=== PATIENT | female | born 1960 | race Hispanic/Latino ===

== ENCOUNTER 2020-09-05 15:19 | Emergency (ER) | payer OTHER ==
--- OUTSIDE RECORDS SUMMARY | 2020-09-05 15:21 | XMS REPORT | Continuity of Care Document ---
:1960 Author Organization [facility] t Address [address] [place] [address] Dr. Saravia [address] [place] [id number] Care Team Providers Name Role Phone Unavailable Unavailable Unavailable Problems This patient has no known problems. Allergies, Adverse Reactions, Alerts This patient has no known allergies or adverse reactions. Medications This patient has no known medications. Procedures This patient has no known procedures. Results This patient has no known results.
--- NOTE | 2020-09-05 17:04 | RAD REPORT ---
EXAM DESCRIPTION: RAD - Humerus Left - 09/05/2020 4:40 pm CLINICAL HISTORY: Humeral fracture FINDINGS: Moderately displaced humeral neck fracture without significant change in appearance from M arch 2020. The fracture extends into the greater trochanter. No dislocation
--- NOTE | 2020-09-05 18:13 | ER ---
Nurse's Notes [facility] Name: Stella Kraft Age: 60 yrs Sex: Female : 1960 Arrival Date: 09/05/2020 Time: 15: Bed 30 Private MD: Derrek Malone E Diagnosis: Acute, closed, left humeral neck fracture Presentation: 09/05 15:43 Chief complaint: Patient states: Trip and fall 2 weeks ago. Had L shoulder x-ray done, ll1 her PCP sent her in for eval of fx. X-ray shows humeral head FX. Coronavirus screen: Client denies travel out of the [place] in the last 14 days. At this time, the client does not indicate any symptoms associated with coronavirus-19. Ebola Screen: Patient denies travel to an Ebola-affected area in the 21 days before illness onset. Initial Sepsis Screen: Does the patient meet any 2 criteria? No. Patient's initial sepsis screen is negative. Does the patient have a suspected source of infection? Yes: Bone or joint infection. Risk Assessment: Do you want to hurt yourself or someone else? Patient reports no desire to harm self or others. Onset of symptoms was August 22, 2020. 15:43 Method Of Arrival: Ambulatory ll1 15:43 Acuity: YOAV 4 ll1 Historical: - Allergies: 15:46 No Known Allergies; ll1 - PMHx: 15:46 Hypertension; Hypothyroidism; ll1 - PSHx: 15:46 None; ll1 - Immunization history:: Flu vaccine is up to date. - Social history:: Smoking status: Patient denies any tobacco usage or history of. - Family history:: not pertinent. - Hospitalizations: : No recent hospitalization is reported. Screenin:02 Abuse screen: Denies threats or abuse. Denies injuries from another. Nutritional ss screening: No deficits noted. Tuberculosis screening: Never had TB. Fall Risk None identified. Assessment: 18:02 General: Denies fever, feeling ill, fatigue, chills. Pain: Complains of pain in L ss shoulder Pain currently is 8 out of 10 on a pain scale. Quality of pain is described as aching, tender, Pain began 2 weeks ago. Pt has known fracture Is continuous. Neuro: Level of Consciousness is awake, alert, obeys commands, Oriented to person, place, time, situation, Speech is normal. Cardiovascular: Capillary refill < 3 seconds is brisk in bilateral fingers. Respiratory: Airway is patent Respiratory effort is even, unlabored, Respiratory pattern is regular, symmetrical. GI: Patient currently denies abdominal pain, diarrhea, nausea, vomiting. : No signs and/or symptoms were reported regarding the genitourinary system. EENT: Nares are clear Oral mucosa is moist. Derm: Skin is intact, is healthy with good turgor, Skin is dry, Skin is pink, warm \T\ dry. normal. Musculoskeletal: Circulation, motion, and sensation intact. Range of motion: limited in left shoulder Swelling absent. Vital Signs: 15:43 BP 174 / 75; Pulse 82; Resp 17; Temp 98.3; Pulse Ox 100% ; Weight 55.34 kg; Height 5 ll1 ft. 0 in. (152.40 cm); Pain 8/10; 15:43 Body Mass Index 23.83 (55.34 kg, 152.40 cm) ll1 ED Course: 15:22 Patient arrived in ED. mr 15:23 Derrek Malone MD is Private Physician. mr 15:45 Triage completed. ll1 15:46 Arm band placed on. ll1 16:37 XRAY Humerus LEFT In Process Unspecified. EDMS 17:51 Jeremías Rajan MD is Attending Physician. rn 18:02 Juana Pozo, NASIM is Primary Nurse. ss 18:02 Patient has correct armband on for positive identification. Bed in low position. Call ss light in reach. 18:02 No provider procedures requiring assistance completed. Patient did not have IV access ss during this emergency room visit. 18:11 Henrik Lebron MD is Referral Physician. rn Administered Medications: No medications were administered Outcome: 18:12 Discharge ordered by . rn 18:35 Discharged to home ambulatory. ss 18:35 Condition: good 18:35 Discharge instructions given to patient, Instructed on discharge instructions, follow up and referral plans. Demonstrated understanding of instructions, follow-up care. 18:35 Patient left the ED. ss Signatures: Dispatcher [employer] EDWY Shanice Gonzalez mr Jeremías Rajan MD MD rn Smirch, Shelby, RN RN Shyanne Lucas RN RN ll1 Corrections: (The following items were deleted from the chart) 15:48 15:43 Chief complaint: Patient states: Trip and fall 2 weeks ago. Had L shoulder x-ray ll1 done, her PCP sent her in for eval of fx. ll1
--- NOTE | 2020-09-05 18:13 | EDPHYS ---
Physician Documentation [facility] Name: Stella Kraft Age: 60 yrs Sex: Female : 1960 Arrival Date: 09/05/2020 Time: 15:22 Bed 30 Private MD: Derrek Malone E ED Physician Jeremías Rajan HPI: 09/05 18:02 This 60 yrs old Female presents to ER via Ambulatory with complaints of Arm rn Injury. 18:02 The patient or guardian complains of decreased range of motion, injury, pain. The rn complaints affect the anterior aspect of left shoulder. Onset: The symptoms/episode began/occurred 2 week(s) ago. Modifying factors: The symptoms are alleviated by remaining still, the symptoms are aggravated by movement, lifting weight. Severity of symptoms: At their worst the symptoms were moderate, in the emergency department the symptoms have improved. The patient has not experienced similar symptoms in the past. The patient has been recently seen by a physician:. Reports fall from standing 2 weeks ago, outpt xray showed fracture of proximal humerus, followed up with ortho but didn't take her insurance, spoke with her PCP who asked her to buy a sling and come in to ER for reeval. No new injury. No weakness or numbness of LUE. Does have limited ROM with lateral elevation of arm. . Historical: - Allergies: 15:46 No Known Allergies; ll1 - PMHx: 15:46 Hypertension; Hypothyroidism; ll1 - PSHx: 15:46 None; ll1 - Immunization history:: Flu vaccine is up to date. - Social history:: Smoking status: Patient denies any tobacco usage or history of. - Family history:: not pertinent. - Hospitalizations: : No recent hospitalization is reported. ROS: 18:02 Constitutional: Negative for fever, chills, and weight loss, MS/Extremity: + left arm rn pain and injury for 2 weeks Skin: No laceration Neuro: Negative for weakness, numbness, tingling Exam: 18:02 Constitutional: This is a well developed, well nourished patient who is awake, alert, rn and in no acute distress. MS/ Extremity: Pulses equal, no cyanosis. Neurovascular intact. + limited lateral elevation of arm. Vital Signs: 15:43 BP 174 / 75; Pulse 82; Resp 17; Temp 98.3; Pulse Ox 100% ; Weight 55.34 kg; Height 5 ll1 ft. 0 in. (152.40 cm); Pain 8/10; 15:43 Body Mass Index 23.83 (55.34 kg, 152.40 cm) ll1 MDM: 17:51 Patient medically screened. rn 18:02 Differential diagnosis: closed fracture, contusion. Data reviewed: vital signs, nurses rn notes, radiologic studies, plain films, and as a result, I will discharge patient. Counseling: I had a detailed discussion with the patient and/or guardian regarding: the historical points, exam findings, and any diagnostic results supporting the discharge/admit diagnosis, radiology results, the need for outpatient follow up, to return to the emergency department if symptoms worsen or persist or if there are any questions or concerns that arise at home. Special discussion: I discussed with the patient/guardian in detail that at this point there is no indication for admission to the hospital. It is understood, however, that if the symptoms persist or worsen the patient needs to return immediately for re-evaluation. Based on the history and exam findings, there is no indication for further emergent testing or inpatient evaluation. I discussed with the patient/guardian the need to see the orthopedic surgeon for further evaluation of the symptoms. ED course: Pt has since contacted her insurance her directed her to Dr. Lebron, she is going to schedule appt with Dr. Bernardino LESTER. Already in [facility].. 09/05 16:06 Order name: MARIBELL Humerus LEFT; Complete Time: 17:52 rn Administered Medications: No medications were administered Disposition: 09/05/20 18:12 Discharged to Home. Impression: Acute, closed, left humeral neck fracture. - Condition is Stable. - Discharge Instructions: Humerus Fracture Treated With Immobilization. - Medication Reconciliation Form, Thank You Letter, Antibiotic Education, Prescription Opioid Use form. - Follow up: Henrik Lebron MD; When: As needed; Reason: Recheck today's complaints, Re-evaluation by your physician. - Problem is an ongoing problem. - Symptoms have improved. Signatures: Dispatcher [employer] EDMS Jeremías Rajan MD MD rn Smirch, Shelby, RN RN ss Lewis, Lynsay, RN RN ll1 Corrections: (The following items were deleted from the chart) 18:35 18:12 09/05/2020 18:12 Discharged to Home. Impression: Acute, closed, left humeral neck ss fracture. Condition is Stable. Forms are Medication Reconciliation Form, Thank You Letter, Antibiotic Education, Prescription Opioid Use. Follow up: Dr. Henrik Lebron; When: As needed; Reason: Recheck today's complaints, Re-evaluation by your physician. Problem is an ongoing problem. Symptoms have improved. rn
[2020-09-05 19:06] VITALS: BP 174/75; TEMP 98.3; O2SAT 100
== END 2020-09-05 18:35 | disposition home or self-care (01) ==
LOC: ER 15:19
DX: S42.292A Other displaced fracture of upper end of left humerus, initial encounter for closed fracture (principal); W01.10XA Fall on same level from slipping, tripping and stumbling with subsequent striking against unspecified object, initial encounter; Y93.9 Activity, unspecified; Y92.9 Unspecified place or not applicable
CPT/HCPCS: 99283

== ENCOUNTER 2025-04-06 20:00 | Emergency (ER) | payer OTHER ==
[2025-04-06] MEDS ORDERED: HYDROCODONE/APAP 5/325 MG TAB ONE (20:22)
[2025-04-06] MEDS ORDERED: DIAZEPAM 5 MG TABLET ONE (22:10)
--- NOTE | 2025-04-06 22:18 | RAD REPORT ---
EXAMINATION: XR Lumbar Spine 3 Views CLINICAL INDICATION: Female, 65 years old. PAIN Bed Name: 6 TECHNIQUE: AP, lateral, focused lateral lumbosacral views of the lumbar spine were obtained. COMPARISON: No prior exam. FINDINGS: For purposes of this dictation, it is assumed that there are 5 lumbar type vertebral bodies. ALIGNMENT: Grade 1 anterolisthesis of L5 over S1 measuring 8-9 mm. BONES: Superior endplate compression deformity at L1, with 7 mm retropulsion of the posterior fragmen t. Other vertebral bodies are normal in height. No aggressive osseous lesions. Mild to moderate endplate degenerative changes most notably at L4-5. DISCS: Disc heights are maintained. IMPRESSION: Superior endplate compression deformity at L1 with 7 mm retropulsion of the posterior fragment. This is of indeterminate age. Other multilevel degenerative changes, up to moderate, with grade 1 anterolisthesis of L5 over S1.
--- NOTE | 2025-04-06 22:19 | RAD REPORT ---
EXAMINATION: XR Sacrum And Coccyx HISTORY: PAIN TECHNIQUE: 2 radiographic views of the sacrum and coccyx. FINDINGS: Lumbar spine and lumbosacral junction evaluated separately and lumbar spine radiographs of the same d ay. Mild to moderate SI joint degenerative changes, joints appear patent. No evidence of an acute fracture or suspicious osseous lesion otherwise.
--- NOTE | 2025-04-06 22:27 | EDPHYS ---
Physician Documentation [facility] Name: Stella Kraft Age: 65 yrs Sex: Female : 1960 Arrival Date: 04/06/2025 Time: 20:00 Bed 6 Private MD: ED Physician Venutra Bunn HPI: 04/06 20:37 This 65 yrs old Female presents to ER via Ambulatory with complaints of Fall kb Injury - LOWER BACK PAIN. 20:37 Pt is a 65 year old female who presents for low back pain after falling backwards 5 kb days ago at [facility]. Denies hitting head, loc. 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 Denies numbness, tingling, urinary symptoms. Historical: - Allergies: 20:19 No Known Allergies; dd2 - PMHx: 20:19 Hypertension; Hypothyroidism; Osteoporosis; dd2 - PSHx: 20:19 None; dd2 - Immunization history:: Adult Immunizations unknown. - Infectious Disease History:: Denies. - Social history:: Smoking status: Patient denies any tobacco usage or history of. ROS: 20:36 Constitutional: As per HPI kb Exam: 20:36 Constitutional: This is a well developed, well nourished patient who is awake, alert, kb and in no acute distress. Head/Face: Normocephalic, atraumatic. ENT: Moist Mucous membranes Respiratory: Respirations even and unlabored. No increased work of breathing. Talking in full sentences Skin: Warm, dry with normal turgor. Normal color. MS/ Extremity: Pulses equal, no cyanosis. Neurovascular intact. Full, normal range of motion. Neuro: Awake and alert, GCS 15, oriented to person, place, time, and situation. 20:36 Back: pain, that is moderate, of the lumbar area and sacrum, ROM is normal, vertebral tenderness, is appreciated at sacrum, Vital Signs: 20:17 BP 145 / 65; Pulse 84; Resp 16; Temp 98.2; Pulse Ox 98% on R/A; Pain 10/10; dd2 21:30 BP 145 / 76; Pulse 67; Resp 16; Pulse Ox 99% on R/A; af3 22:14 BP 153 / 80; Pulse 74; Resp 18; Pulse Ox 95% on R/A; af3 22:43 BP 145 / 82; Pulse 73; Resp 18; Pulse Ox 95% on R/A; af3 20:17 Pain Scale: Adult dd2 MDM: 20:12 Medical Screening Exam initiated kb 20:37 Differential diagnosis: contusion, fracture, herniated disc. Data reviewed: vital kb signs, nurses notes. 22:28 Counseling: I had a detailed discussion with the patient and/or guardian regarding the kb historical points, exam findings, and any diagnostic results supporting the discharge/admit diagnosis, radiology results, the need for outpatient follow up, a family practitioner, to return to the emergency department if symptoms worsen or persist or if there are any questions or concerns that arise at home. 22:28 Historians other than the Patient: Family Member: family. kb 04/06 20:18 Order name: Lumbar Spine (3 Views) XRAY; Complete Time: 22:18 kb 04/06 20:18 Order name: Sacrum And Coccyx XRAY; Complete Time: 22:21 kb Administered Medications: 20:26 Drug: HYDROcodone-acetaminophen PO 5 mg-325 mg 1 tabs PO once Route: PO; af3 21:30 Follow up: Response: No adverse reaction; RASS: Alert and Calm (0) af3 21:57 Follow up: Response: No adverse reaction af3 22:12 Drug: Diazepam PO 5 mg PO once Route: PO; af3 22:43 Follow up: Response: No adverse reaction; RASS: Alert and Calm (0) af3 Disposition: 23:59 Co-signature as Attending Physician, Ventura Bunn MD I agree with the assessment sp4 and plan of care. I reviewed the patient's care provided by Advanced Practice Provider \T\ agree w/ the diagnosis \T\ care plan. I personally saw the pt \T\ performed a substantive portion of the visit, incldng all aspects of the (History/Exam/Medical Decision Making). Disposition Summary: 04/06/25 22:26 Discharge Ordered Notes: Location: Home Condition: Stable kb Diagnosis - Low back pain kb - Compression fracture L1 kb Followup: kb - With: Emergency Department - When: As needed - Reason: Worsening of condition Followup: kb - With: Private Physician - When: 2 - 3 days - Reason: Recheck today's complaints, Continuance of care, Re-evaluation by your physician Discharge Instructions: - Discharge Summary Sheet kb - Acute Back Pain, Adult kb - Spinal Compression Fracture kb Forms: - Work release form kb - Medication Reconciliation Form kb - Antibiotic Education kb - Prescription Opioid Use kb - Patient Portal Instructions kb - Leadership Thank You Letter kb Prescriptions: - Diclofenac Sodium 75 mg Oral tablet, delayed release (enteric coated) - take 1 tablet ORAL route 2 times per day As needed; 30 tablet; Refills: 0, kb Product Selection Permitted - orphenadrine citrate 100 mg Oral Tablet Sustained Release - take 1 tablet ORAL route 2 times per day As needed; 20 tablet; Refills: 0, kb Product Selection Permitted Signatures: Dispatcher [employer] EDMS Tiffanie Chacon, DAVID-Aurora Clay RN RN ha1 Ventura Bunn MD MD sp4 Alicja Bass RN RN af3 KATHRYN CRAIG RN RN dd2 Corrections: (The following items were deleted from the chart) 20:18 20:18 Lumbar Spine 3 Views+RAD.RAD.BRZ ordered. EDMS EDMS 20:19 20:19 Sacrum And Coccyx+RAD.RAD.BRZ ordered. EDMS EDMS
--- NOTE | 2025-04-06 22:27 | ER ---
Nurse's Notes [facility] Name: Stella Kraft Age: 65 yrs Sex: Female : 1960 Arrival Date: 04/06/2025 Time: 20:00 Bed 6 Private MD: Diagnosis: Low back pain;Compression fracture L1 Presentation: 04/06 20:17 Chief complaint: Patient states: [place] WALKING [place] ON [place] AND FELL dd2 BACKWARDS ON THE GRASS. REPORTS INJURING LOWER BACK AND SACRUM. Coronavirus screen: At this time, the client does not indicate any symptoms associated with coronavirus-19. Ebola Screen: No symptoms or risks identified at this time. Initial Sepsis Screen: Does the patient meet any 2 criteria? No. Patient's initial sepsis screen is negative. Does the patient have a suspected source of infection? No. Patient's initial sepsis screen is negative. Risk Assessment: Do you want to hurt yourself or someone else? Patient reports no desire to harm self or others. Onset of symptoms was April 02, 2025. 20:17 Method Of Arrival: Ambulatory dd2 20:17 Acuity: YOAV 3 dd2 Triage Assessment: 20:19 General: Appears in no apparent distress. uncomfortable, Behavior is calm, cooperative, dd2 appropriate for age. Pain: Complains of pain in low back area and sacrum. Musculoskeletal: Circulation, motion, and sensation intact. Range of motion: intact in all extremities, Reports pain in low back area and sacrum. Historical: - Allergies: 20:19 No Known Allergies; dd2 - PMHx: 20:19 Hypertension; Hypothyroidism; Osteoporosis; dd2 - PSHx: 20:19 None; dd2 - Immunization history:: Adult Immunizations unknown. - Infectious Disease History:: Denies. - Social history:: Smoking status: Patient denies any tobacco usage or history of. Screenin:25 [facility] ED Fall Risk Assessment (Adult) History of falling in the last 3 months, af3 including since admission No falls in past 3 months (0 pts) Confusion or Disorientation No (0 pts) Intoxicated or Sedated No (0 pts) Impaired Gait No (0 pts) Mobility Assist Device Used No (0 pt) Altered Elimination No (0 pt) Score/Fall Risk Level 0 - 2 = Low Risk Oriented to surroundings, Maintained a safe environment, Educated pt \T\ family on fall prevention, incl call for assistance when getting out of bed. 20:25 Abuse screen: Denies threats or abuse. Denies injuries from another. Nutritional af3 screening: No deficits noted. Tuberculosis screening: No symptoms or risk factors identified. Assessment: 20:25 General: Appears in no apparent distress. uncomfortable, well groomed, well developed, af3 Behavior is calm, cooperative, appropriate for age. Pain: Complains of pain in sacrum, left low back and right low back Pain currently is 7 out of 10 on a pain scale. Neuro: Level of Consciousness is awake, alert, obeys commands, Oriented to person, place, time, situation, Appropriate for age. Cardiovascular: Patient's skin is warm and dry. Respiratory: Airway is patent Respiratory effort is even, unlabored, Respiratory pattern is regular, symmetrical. Derm: Skin is intact, Skin is pink, warm \T\ dry. normal. Musculoskeletal: unable to lay flat on back, only comfortable laying on left side. 21:30 Reassessment: Patient appears in no apparent distress at this time. Patient and/or af3 family updated on plan of care and expected duration. Pain level reassessed. Patient is alert, oriented x 3, equal unlabored respirations, skin warm/dry/pink. 22:00 Reassessment: Patient appears in no apparent distress at this time. Patient and/or af3 family updated on plan of care and expected duration. Pain level reassessed. Pt requesting pain medication, stating the back pain has come back at 10/10, provider notified, orders received . 22:43 Reassessment: Patient appears in no apparent distress at this time. Patient and/or af3 family updated on plan of care and expected duration. Pain level reassessed. Patient is alert, oriented x 3, equal unlabored respirations, skin warm/dry/pink. Patient states symptoms have improved. Vital Signs: 20:17 BP 145 / 65; Pulse 84; Resp 16; Temp 98.2; Pulse Ox 98% on R/A; Pain 10/10; dd2 21:30 BP 145 / 76; Pulse 67; Resp 16; Pulse Ox 99% on R/A; af3 22:14 BP 153 / 80; Pulse 74; Resp 18; Pulse Ox 95% on R/A; af3 22:43 BP 145 / 82; Pulse 73; Resp 18; Pulse Ox 95% on R/A; af3 20:17 Pain Scale: Adult dd2 ED Course: 20:06 Patient arrived in ED. sj2 20:08 KATHRYN CRAIG RN is Primary Nurse. dd2 20:12 Tiffanie Chacon FNP-C is PHCP. kb 20:12 Ventura Bunn MD is Attending Physician. kb 20:19 Triage completed. dd2 20:19 Arm band placed on right wrist. dd2 20:25 Patient has correct armband on for positive identification. Placed in gown. Bed in low af3 position. Provided Education on: plan of care . 20:25 No provider procedures requiring assistance completed. af3 21:03 Lumbar Spine (3 Views) XRAY In Process Unspecified. EDMS 21:03 Sacrum And Coccyx XRAY In Process Unspecified. EDMS 22:44 Patient did not have IV access during this emergency room visit. af3 Administered Medications: 20:26 Drug: HYDROcodone-acetaminophen PO 5 mg-325 mg 1 tabs PO once Route: PO; af3 21:30 Follow up: Response: No adverse reaction; RASS: Alert and Calm (0) af3 21:57 Follow up: Response: No adverse reaction af3 22:12 Drug: Diazepam PO 5 mg PO once Route: PO; af3 22:43 Follow up: Response: No adverse reaction; RASS: Alert and Calm (0) af3 Medication: 20:50 VIS not applicable for this client. af3 Outcome: 22:26 Discharge ordered by MD. kb 22:44 Discharged to home via wheelchair, with family, af3 22:44 Condition: stable 22:44 Discharge instructions given to patient, family, Instructed on discharge instructions, follow up and referral plans. medication usage, Demonstrated understanding of instructions, follow-up care, medications, Prescriptions given X 2, 22:44 Patient left the ED. af3 Signatures: Dispatcher [employer] EDMS Tiffanie Chacon FNP-C FNP-Alicja Mary RN RN af3 KATHRYN CRAIG RN RN dd2 Felix Celis sj2 Corrections: (The following items were deleted from the chart) 22:34 22:00 Reassessment: Patient appears in no apparent distress at this time. Patient af3 and/or family updated on plan of care and expected duration. Pain level reassessed. Pt requesting pain medication, stating the back pain has come back, provider notified, orders received . af3
[2025-04-07 08:22] VITALS: TEMP 98.2
[2025-04-07 08:34] VITALS: O2SAT 95
[2025-04-07 08:40] VITALS: BP 145/82
== END 2025-04-06 22:44 | disposition home or self-care (01) ==
LOC: ER 20:00
DX: S32.010A Wedge compression fracture of first lumbar vertebra, initial encounter for closed fracture (principal); W18.30XA Fall on same level, unspecified, initial encounter; Y92.511 Restaurant or cafe as the place of occurrence of the external cause
CPT/HCPCS: 72100; 72220; 99283